=== PATIENT | male | born 1985 | race Caucasian/White ===

== ENCOUNTER 2017-03-31 09:08 | Emergency (ER) | payer OTHER ==
[~2017-03-31] VITALS: Ht 170.2 cm; Wt 74.8 kg
--- NOTE | ~2017-03-31 | CT4 ---
[facility] A Service of [facility] & [facility] RADIOLOGY TEXT RESULTS PATIENT: KELLY DOSS LOCATION: [facility] : 89 UNIT #: [id number] AGE: [address]: Barrett Sorenson MD SEX: M ORDER DR: [id number] [facility] [address] [place], [place] [address] [id number] MR#: [id number] Acc #: [id number] NAME: KELLY DOSS : 1985 SEX: M STUDY DATE/TIME: 03/31/2017 12:04 UNIT: [facility] ROOM: STUDY DESCRIPTION: CT Abd and Pelv Wo Cont Attending Physician: Barrett Sorenson M.D. Ordering Physician: Barrett Sorenson M.D. Primary Care Physician: Primary Care Physician No MEDICAL IMAGING REPORT This report is preliminary unless electronic signature is present EXAM CT abdomen and pelvis without contrast 03/31/2017 1204 hours HISTORY 31-year-old man complaining of left lower back pain and abdominal cramping today. COMPARISON None. TECHNIQUE Helical noncontrasted images were obtained from the lung bases through the pubic symphysis without oral or intravenous contrast. Sagittal and coronal reconstructions were performed. Total exam DLP 595 mGy-cm. This CT examination was performed with one or more of the following radiation dose reduction techniques: automatic exposure control, adjustment of mA and/or kV according to patient size, and iterative reconstruction. FINDINGS Images through the lung bases demonstrate minimal ground-glass density at the left base likely atelectasis. There is no nodule or effusion. The distal esophagus is normal. Images through the abdomen demonstrate a normal appearance to the liver, spleen, pancreas, gallbladder, bile ducts, adrenal glands. Right kidney appears normal. The right ureter is normal. The left kidney demonstrates very subtle pelvocaliectasis and ureterectasis to the level of the left ureterovesical junction where there is a small stone measuring 3 mm. This is at the UVJ or just passed into the bladder. No bladder wall thickening is seen. The stomach, small bowel and appendix are normal. There is no colonic distension or colonic wall thickening. STS. [facility] A Service of [facility] & [facility] RADIOLOGY TEXT RESULTS PATIENT: KELLY DOSS LOCATION: [facility] : 89 UNIT #: [id number] AGE: [address]: Barrett Sorenson MD SEX: M ORDER DR: Bone window images are negative. IMPRESSION There is a 3 mm stone on the left at the ureterovesical junction or just passed into the bladder. There is very minimal pelvocaliectasis or ureterectasis on the left. Findings could represent residua from recently passed stone. Correlate with current symptoms of pain. STAT * RESULT Dictated by... Angelita Caballero M.D. THIS IS AN ELECTRONICALLY VERIFIED REPORT Angelita Caballero M.D. at 03/31/2017 2:17 PM SHARON/lavinia TD: 03/31/2017 12:37 JOB #: [id number] MEDICAL IMAGING REPORT Page 1 of 1 COPY
[2017-03-31 10:35] LABS: URINE SOURCE CLEAN CATCH
[2017-03-31 10:44] LABS: URINE APPEARANCE CLOUDY; URINE BILIRUBIN NEG (NEG); URINE BLOOD 3+ (NEG); URINE COLOR YELLOW; URINE GLUCOSE NEG (NEG); URINE KETONE TRACE (NEG); URINE LEUKOCYTE ESTERASE NEG (NEG); URINE NITRATE NEG (NEG); URINE PROTEIN 2+ (NEG); URINE SPECIFIC GRAVITY 1.036 (1.003-1.035)
[2017-03-31 10:46] LABS: CULTURE INDICATED? YES; URINE BACTERIA AUWI NEG (NEGATIVE); URINE SQUAMOUS EPITHELIAL CELL OCC /[HPF]
[2017-03-31 10:48] LABS: BASOPHIL% 0.5 % (0-2.5); EOSINOPHIL# 0.1 X10e3 (0-0.7); EOSINOPHIL% 1.7 % (0.0-7.0); HEMATOCRIT 44.3 % (38.0-50.0); HEMOGLOBIN 14.5 gm/dL (13.0-16.0); LYMPHOCYTE# 1.6 X10e3 (1.0-3.5); LYMPHOCYTE% 23.1 % (17.0-45.0); MEAN CELL VOLUME 87.8 FL (83-96); MEAN CORPUSCULAR HEMOGLOBIN 28.8 PG (28-34); MEAN CORPUSCULAR HGB CONC 32.8 g/dL (30-36); MEAN PLATELET VOLUME 9.2 FL (6.5-11.5); MONOCYTE# 0.5 X10e3 (0-1.0); MONOCYTE% 6.7 % (3.0-12.0); NEUTROPHIL# 4.6 X10e3 (1.5-7.1); PLATELET COUNT 206 X10e3 (140-420); RED BLOOD COUNT 5.05 X10e (3.90-5.60); RED CELL DISTRIBUTION WIDTH 13.8 % (11.0-15.5); WHITE BLOOD COUNT 6.8 X10e3 (4.0-10.5)
[2017-03-31 10:54] LABS: DIFF IND NO
[2017-03-31 11:09] LABS: CALCIUM SERUM 8.9 mg/dL (8.4-10.2); GLOM FILT RATE Estimated 101.3 mL/min (>60); POTASSIUM 3.9 mmol/L (3.5-5.1)
== END 2017-03-31 13:19 | disposition home or self-care (01) ==
LOC: CED 09:08
PROVIDERS: Emergency Medicine
DX: N20.1 Calculus of ureter (principal); F17.200 Nicotine dependence, unspecified, uncomplicated
CPT/HCPCS: 36415; 74176; 80048; 81003; 85025; 87086; 96361; 96374; 96375; 99284; J1885; J2405